=== PATIENT | female | born 1940 ===

== ENCOUNTER 2024-05-24 11:48 | Emergency (ER) | payer MEDICARE ==
[~2024-05-24] VITALS: Ht 149.9 cm; Wt 37.0 kg
[2024-05-24 12:02] VITALS: BP 122/101; PULSE 89; RESP 16; O2SAT 98
[2024-05-24 14:34] VITALS: TEMP 97.6
== END 2024-05-24 14:36 | disposition left against medical advice (07) ==
LOC: ER 11:50
DX: S51.812D Laceration without foreign body of left forearm, subsequent encounter (principal); W19.XXXD Unspecified fall, subsequent encounter
CPT/HCPCS: 99281